=== PATIENT | male | born 1985 | race Caucasian/White ===

== ENCOUNTER 2016-03-17 11:32 | Emergency (ER) | payer BC, MEDICAID ==
[2016-03-17] MEDS ORDERED: DEXAMETHASONE 4 MG/ML VIAL ONE (12:31)
[2016-03-17] MEDS ORDERED: DIPHENHYDRAMINE 50 MG/ML VIAL ONE (12:31)
[2016-03-17] MEDS ORDERED: SODIUM CHLORIDE 0.9% 100 ML IV ONE (12:32)
[2016-03-17] MEDS ORDERED: CEFTRIAXONE 1 GM VIAL ONE (12:32)
== END 2016-03-17 14:30 | disposition home or self-care (01) ==
LOC: ER 11:32
CPT/HCPCS: 36415; 70360; 80053; 85025; 96361; 96374; 96375

== ENCOUNTER 2016-04-15 17:05 | Emergency (ER) | payer MEDICAID ==
[2016-04-15] MEDS ORDERED: OPTIRAY 350 100 ML VIAL HMH IV ONE (17:06)
[2016-04-15] MEDS ORDERED: DEXAMETHASONE 4 MG/ML VIAL ONE (20:35)
== END 2016-04-15 21:11 | disposition home or self-care (01) ==
LOC: ER 17:05
DX: J02.9 Acute pharyngitis, unspecified (principal); B96.3 Hemophilus influenzae [H. influenzae] as the cause of diseases classified elsewhere
CPT/HCPCS: 70491; 96374